=== PATIENT | female | born 1975 | race Caucasian/White ===

== ENCOUNTER 2023-03-28 23:44 | Emergency (ER) | payer OTHER, SELFPAY ==
[2023-03-28 23:55] VITALS: BP 147/67; PULSE 93; RESP 16; TEMP 37.2; O2SAT 98; BMI 42.3
--- NOTE | 2023-03-29 00:06 | ED.ABDPAIN1 ---
HPI - Abdominal Pain General Chief Complaint: Abdominal Pain Stated Complaint: PAIN RIGHT SIDE ABDOMAIN Time Seen by Provider: 03/29/23 00:03 Source: patient Mode of arrival: Wheelchair Limitations: no limitations History of Present Illness HPI narrative: 47-year-old female presents for right lower quadrant abdominal pain. she's had it continuously for about eight hours but it waxes and wanes. About eight months ago she had similar circumstances and was seen at another emergency department. Testing there including a CAT scan didn't reveal the cause. Her periods have been irregular recently and lasted one day, early in this month. The pain is sharp and at times severe. Related Data Home Medications Medication Instructions Recorded Confirmed atorvastatin 20 mg tablet (Lipitor) 20 mg PO DAILY 03/29/23 03/29/23 lisinopril 20 1 tab PO DAILY 03/29/23 03/29/23 mg-hydrochlorothiazide 25 mg tablet mecobalamin (vitamin B12) 1,000 1,000 mcg PO DAILY 03/29/23 03/29/23 mcg chewable tablet (B12 Active) Previous Rx's Medication Instructions Recorded acetaminophen 300 mg-codeine 30 mg 1 tab PO Q6H PRN pain 5 days #20 03/29/23 tablet tabs Allergies Allergy/AdvReac Type Severity Reaction Status Date / Time No Known Drug Allergies Allergy Verified 03/29/23 00:00 Review of Systems ROS Narrative A ten point review of systems is negative except as noted above. PFSH PFSH Social History Smoking status: Never smoker Exam Narrative Exam Narrative: Nurses note and vital signs reviewed and patient is not hypoxic. General: The patient appears uncomfortable. Skin: Warm, dry, no pallor noted. There is no rash noted. Head: Normocephalic, atraumatic Eye: Normal conjunctiva, no drainage Ears, Nose, Mouth, and Throat: oral mucosa is moist. Nares patent. Cardiovascular: Regular Rate and Rhythm Respiratory: Patient is in no distress, no accessory muscle use, lungs are clear to auscultation, no wheezing, rales or rhonchi Back: non-tender GI:obese, nontender, no mass Musculoskeletal: The patient has no evidence of calf tenderness, no pitting edema, symmetrical pulses noted bilaterally Neurological: A&O, normal speech Psychiatric: Cooperative Constitutional Vital Signs, click to edit/add: Last Vital Signs Temp 98.9 F 12/30/23 23:55 Pulse 93 H 03/28/23 23:55 Resp 16 03/28/23 23:55 BP 147/67 H 03/28/23 23:55 Pulse Ox 98 03/28/23 23:55 Course Vital Signs Vital signs: Vital Signs Temperature 98.9 F 03/28/23 23:55 Pulse Rate 93 H 03/28/23 23:55 Respiratory Rate 16 03/28/23 23:55 Blood Pressure 147/67 H 03/28/23 23:55 Pulse Oximetry 98 03/28/23 23:55 Temperature 98.9 F 03/28/23 23:55 Pulse Rate 93 H 03/28/23 23:55 Respiratory Rate 16 03/28/23 23:55 Blood Pressure 147/67 H 03/28/23 23:55 Pulse Oximetry 98 03/28/23 23:55 MDM - Abdominal Pain MDM Narrative Medical decision making narrative: questionable finding which could be a mass in the cecum on the CAT scan per radiologist. This was discussed with the patient. Coincidentally she is scheduled for a colonoscopy on April 07 for a different issue and she will have that evaluated at that time. The rest of her workup is negative. Treatment diagnosis and follow-up were discussed with the patient. Differential Diagnosis Differential diagnosis: Likely abdominal pain, acute appendicitis, calculus of kidney, constipation, gastroenteritis and small bowel obstruction Lab Data Attestation: I reviewed the patient's lab results. Labs: Lab Results 03/29/23 03/29/23 Range/Units 00:15 00:35 WBC 12.2 H (4.0-11.0) 10^3/uL RBC 4.41 (4.20-5.40) 10^6/uL Hgb 9.3 L (12.0-16.0) g/dL Hct 32.1 L (36.0-48.0) % MCV 72.8 L (81.0-99.0) fL MCH 21.1 L (26.7-34.0) pg MCHC 29.0 L (29.9-35.2) g/dL RDW 20.7 H (11.0-15.0) % Plt Count 238 (150-450) 10^3/uL MPV 10.4 (9.5-13.5) fL Neut % (Auto) 84.0 H (43.0-75.0) % Lymph % (Auto) 10.3 L (20.5-60.0) % [place] % (Auto) 4.7 (1.7-12.0) % Eos % (Auto) 0.2 L (0.9-7.0) % Baso % (Auto) 0.4 (0.2-2.0) % Neut # (Auto) 10.2 H (1.4-6.5) 10^3/uL Lymph # (Auto) 1.3 (1.2-3.8) 10^3/uL Williamson # (Auto) 0.6 (0.3-0.8) 10^3/uL Eos # (Auto) 0.0 (0.0-0.7) 10^3/uL Baso # (Auto) 0.1 (0.0-0.1) 10^3/uL Abs Immat Gran (auto) 0.05 H (0.00-0.03) 10^3/uL Imm/Tot Granulo (auto) 0.4 (0.0-0.5) % Sodium 139 (136-145) mmol/L Potassium 3.1 L (3.5-5.1) mmol/L Chloride 103 (98-107) mmol/L Carbon Dioxide 26.6 (21.0-32.0) mmol/L Anion Gap 12.5 BUN 9.0 (7.0-18.0) mg/dL Creatinine 0.78 (0.55-1.02) mg/dL Est GFR ( Amer) >60 (>=60) Est GFR (Non-Af Amer) >60 (>=60) BUN/Creatinine Ratio 11.5 Glucose 108 H (74-106) mg/dL Calcium 8.9 (8.5-10.1) mg/dL Serum HCG, Qual Negative (NEGATIVE) Urine Color Yellow (YELLOW) Urine Clarity Clear (CLEAR) Urine pH 5.5 (5.0-9.0) Ur Specific [place] >=1.030 A (1.005-1.025) Urine Protein Negative (NEG/TRACE) mg/dL Urine Glucose (UA) Negative (NEGATIVE) mg/dL Urine Ketones Negative (NEGATIVE) mg/dL Urine Occult Blood Trace-i (NEGATIVE) Urine Nitrite Negative (NEGATIVE) Urine Bilirubin Negative (NEGATIVE) Urine Urobilinogen 0.2 (0.2-1.0) EU/dL Ur Leukocyte Esterase Negative (NEGATIVE) Urine RBC 0-2 (0-2) #/HPF Urine WBC 0-2 A (NONE SEEN) #/HPF Ur Squamous Epith Cells Many A (NONE/RARE) #/LPF Urine Crystals None seen (None Seen) #/HPF Urine Bacteria Trace A (NONE SEEN) #/HPF Urine Casts None seen (NONE SEEN) #/LPF Urine Mucus Small A (NONE SEEN) Imaging Data CT scan - abdomen: Radiologist's impression: Procedure: CT abdomen pelvis w con EXAM: CT abdomen pelvis w con HISTORY: right lower quadrant abdominal pain COMPARISON: CT abdomen pelvis, 07/02/2022. TECHNIQUE: IV contrast enhanced CT imaging the abdomen and pelvis was performed using 100 mL of Omnipaque 300 intravenous contrast. Sagittal and coronal reconstructions are provided. Dose reduction techniques were achieved by using automated exposure control and/or adjustment of mA and/or kV according to patient size and/or use of iterative reconstruction technique. FINDINGS: CT ABDOMEN: The lung bases are clear. The imaged heart is unremarkable. Cholecystectomy clips are unchanged. There is no biliary ductal dilatation. The liver and spleen are enlarged but otherwise unremarkable. The pancreas, adrenal glands and left kidney are unremarkable. There is a 0.9 cm posterior right renal lesion measuring 29 Hounsfield units on image 64 series 3. There is a small cortical cyst in the anterior lower pole of the right kidney on image 75. The aorta, IVC, and stomach are unremarkable. There is fatty infiltration in the wall of multiple small bowel loops compatible with prior enteritis. No acute inflammation is seen. CT PELVIS: There is prominent circumferential wall thickening in the cecum favoring annular mass over typhlitis. This measures 7 x 5 cm on image 102 series 3. There is mild adjacent fat stranding with a nonspecific adjacent 1.3 cm mesenteric nodule on image 101 favoring a metastatic implant or enlarged lymph node. Several smaller subcentimeter right lower quadrant mesenteric nodules or nodes are noted. The remainder the colon is otherwise unremarkable, aside from mild diverticular change. The appendix appears normal on images 96 through 112. There is fatty infiltration in the terminal ileum. The uterus, ovaries and urinary bladder are unremarkable. There is a fat-containing umbilical hernia. Pelvic floor laxity is noted. No acute osseous abnormality or suspicious bony lesion is seen. IMPRESSION: 1. Prominent circumferential wall thickening in the cecum favoring annular mass/malignancy over typhlitis. Further evaluation with colonoscopy is recommended. Mild adjacent mesenteric fat stranding is noted with nonspecific mesenteric nodules which could reflect metastatic implants or mild adenopathy. 2. Cholecystectomy. 3. Nonspecific 0.9 cm right renal lesion favors a Bosniak category 2 cyst over a small renal mass. Attention at follow-up is recommended. 4. Normal appendix. Electronically authenticated by: WILLIAM FENG Date: 03/29/2023 02:15 Discharge Plan Discharge Chief Complaint: Abdominal Pain Clinical Impression: Abdominal pain Patient Disposition: Home, Self-Care Time of Disposition Decision: 02:29 Condition: Good Mode of Transportation: Private Vehicle Prescriptions / Home Meds: New acetaminophen-codeine 300-30 mg tablet 1 tab PO Q6H PRN (Reason: pain) 5 Days Qty: 20 0RF No Action lisinopril-hydrochlorothiazide 20-25 mg tablet 1 tab PO DAILY atorvastatin [Lipitor] 20 mg tablet 20 mg PO DAILY mecobalamin (vitamin B12) [B12 Active] 1,000 mcg tablet,chewable 1,000 mcg PO DAILY Instructions: Abdominal Pain (ED) Additional Instructions: colonoscopy as scheduled on April 07 Stand Alone Forms: Portal Instructions Referrals: Physician,Non-Staff, MD [Primary Care Provider] - 1 week
[2023-03-29 00:27] LABS: Basophils Absolute Auto 0.1 10^3/uL (0.0-0.1); Basophils Percent Auto 0.4 % (0.2-2.0); Eosinophils Percent Auto 0.2 % (0.9-7.0); Hematocrit 32.1 % (36.0-48.0); Hemoglobin 9.3 g/dL (12.0-16.0); Immature Granulocytes Abs Auto 0.05 10^3/uL (0.00-0.03); Immature Granulocytes Pct Auto 0.4 % (0.0-0.5); Lymphocytes Absolute Auto 1.3 10^3/uL (1.2-3.8); Lymphocytes Percent Auto 10.3 % (20.5-60.0); Mean Corpuscular Hemoglobin 21.1 pg (26.7-34.0); Mean Corpuscular Volume 72.8 fL (81.0-99.0); Mean Platelet Volume 10.4 fL (9.5-13.5); Monocytes Absolute Auto 0.6 10^3/uL (0.3-0.8); Monocytes Percent Auto 4.7 % (1.7-12.0); Neutrophils Absolute Auto 10.2 10^3/uL (1.4-6.5); Platelet Count 238 10^3/uL (150-450); Red Blood Count 4.41 10^6/uL (4.20-5.40); Red Cell Distribution Width 20.7 % (11.0-15.0); White Blood Count 12.2 10^3/uL (4.0-11.0)
[2023-03-29 00:37] LABS: Anion Gap 12.5; BUN Creatinine Ratio 11.5; Calcium 8.9 mg/dL (8.5-10.1); Carbon Dioxide 26.6 mmol/L (21.0-32.0); Chloride 103 mmol/L (98-107); Estimated GFR (African America >60 (>=60); Estimated GFR (Non-African Ame >60 (>=60); Glucose 108 mg/dL (74-106); Potassium 3.1 mmol/L (3.5-5.1); Sodium 139 mmol/L (136-145)
[2023-03-29 00:41] LABS: HCG Qualitative NEGATIVE (NEGATIVE)
[2023-03-29 00:54] LABS: Bilirubin Urine NEGATIVE (NEGATIVE); Blood Urine TRACE-I (NEGATIVE); Clarity Urine CLEAR (CLEAR); Color Urine YELLOW (YELLOW); Glucose Urine UA NEGATIVE (NEGATIVE); Ketones Urine NEGATIVE (NEGATIVE); Leukocyte Esterase Urine NEGATIVE (NEGATIVE); Nitrite Urine NEGATIVE (NEGATIVE); Protein Urine NEGATIVE (NEG/TRACE); Specific Gravity Urine >=1.030 (1.005-1.025); Urobilinogen Urine 0.2 EU/dL (0.2-1.0); pH Urine 5.5 (5.0-9.0)
--- NOTE | 2023-03-29 00:57 | CT_ITS ---
The [address] [address] Patient Name: TRISHA SAINZ MRN: [id number] date: 1975 Sex: F Assigned Patient Location: ER Current Patient Location: ER Accession/Order Number: [id number] Exam Date: 03/29/2023 01:21 Report Date: 03/29/2023 02:15 At the request of: ALBARO GOEL Procedure: CT abdomen pelvis w con EXAM: CT abdomen pelvis w con HISTORY: right lower quadrant abdominal pain COMPARISON: CT abdomen pelvis, 07/02/2022. TECHNIQUE: IV contrast enhanced CT imaging the abdomen and pelvis was performed using 100 mL of Omnipaque 300 intravenous contrast. Sagittal and coronal reconstructions are provided. Dose reduction techniques were achieved by using automated exposure control and/or adjustment of mA and/or kV according to patient size and/or use of iterative reconstruction technique. FINDINGS: CT ABDOMEN: The lung bases are clear. The imaged heart is unremarkable. Cholecystectomy clips are unchanged. There is no biliary ductal dilatation. The liver and spleen are enlarged but otherwise unremarkable. The pancreas, adrenal glands and left kidney are unremarkable. There is a 0.9 cm posterior right renal lesion measuring 29 Hounsfield units on image 64 series 3. There is a small cortical cyst in the anterior lower pole of the right kidney on image 75. The aorta, IVC, and stomach are unremarkable. There is fatty infiltration in the wall of multiple small bowel loops compatible with prior enteritis. No acute inflammation is seen. CT PELVIS: There is prominent circumferential wall thickening in the cecum favoring annular mass over typhlitis. This measures 7 x 5 cm on image 102 series 3. There is mild adjacent fat stranding with a nonspecific adjacent 1.3 cm mesenteric nodule on image 101 favoring a metastatic implant or enlarged lymph node. Several smaller subcentimeter right lower quadrant mesenteric nodules or nodes are noted. The remainder the colon is otherwise unremarkable, aside from mild diverticular change. The appendix appears normal on images 96 through 112. There is fatty infiltration in the terminal ileum. The uterus, ovaries and urinary bladder are unremarkable. There is a fat-containing umbilical hernia. Pelvic floor laxity is noted. No acute osseous abnormality or suspicious bony lesion is seen. CT/CT abdomen pelvis w con IMPRESSION: 1. Prominent circumferential wall thickening in the cecum favoring annular mass/malignancy over typhlitis. Further evaluation with colonoscopy is recommended. Mild adjacent mesenteric fat stranding is noted with nonspecific mesenteric nodules which could reflect metastatic implants or mild adenopathy. 2. Cholecystectomy. 3. Nonspecific 0.9 cm right renal lesion favors a Bosniak category 2 cyst over a small renal mass. Attention at follow-up is recommended. 4. Normal appendix. Electronically authenticated by: WILLIAM FENG Date: 03/29/2023 02:15
[2023-03-29 01:00] LABS: Bacteria Urine TRACE #/HPF (NONE SEEN); Mucus Urine SMALL (NONE SEEN); RBC Urine 0-2 #/HPF (0-2); Squamous Epithelial Cell Urine MANY #/LPF (NONE/RARE); WBC Urine 0-2 #/HPF (NONE SEEN)
[2023-03-29 01:01] LABS: Cast Seen? NONE SEEN #/LPF (NONE SEEN); Crystals Seen? None Seen #/HPF (None Seen)
[2023-03-29] MEDS: ONDANSETRON PF 4 MG/2 ML VIAL IV (01:05)
[2023-03-29] MEDS: MORPHINE SULFATE 4 MG/ML VIAL IV (01:05)
== END 2023-03-29 02:52 | disposition home or self-care (01) ==
PROVIDERS: Emergency Provider Emergency Medicine
DX: R10.31 Right lower quadrant pain (principal); Z90.49 Acquired absence of other specified parts of digestive tract
CPT/HCPCS: 36415; 74177; 80048; 81001; 84703; 85025; 96374; 96375; 99284; Q9967